=== PATIENT | female | born 1990 | race American Indian/Alaskan Native ===

== ENCOUNTER 2017-04-01 18:26 | Emergency (ER) | payer SELFPAY ==
[2017-04-01 18:38] VITALS: O2SAT 100
[2017-04-01] MEDS ORDERED: Sodium Chloride 0.9% 1,000 ML IV ONE (18:48)
[2017-04-01] MEDS ORDERED: Sodium Chloride 0.9% 1,000 ML ONE (19:22)
--- NOTE | 2017-04-01 19:47 | C.PDOC ---
History Of Present Illness 26 year old female who presents to the ER with a complaint of vomiting for the last 4 days. Patient states she has not had her menstrual period this month; she note she is P:1. Patient reports having any elective in September. Denies fever, chills, or abdominal pain. Time Seen by Provider: 04/01/17 18:39 Chief Complaint (Nursing): Abdominal Pain History Per: Patient History/Exam Limitations: no limitations Onset/Duration Of Symptoms: Days (4) Current Symptoms Are (Timing): Still Present Associated Symptoms: Vomiting. denies: Fever, Chills Exacerbating Factors: None Alleviating Factors: None Recent travel outside of the [place]: No Abnormal Vaginal Bleeding: No Past Medical History Reviewed: Historical Data, Nursing Documentation, Vital Signs Vital Signs: Last Vital Signs Temp 98.3 F 04/01/17 18:35 Pulse 68 04/01/17 18:35 Resp 19 04/01/17 18:35 BP 95/63 L 04/01/17 18:35 Pulse Ox 100 04/01/17 21:32 - Medical History PMH: Asthma Surgical History: Tonsillectomy Family History: States: Unknown Family Hx - Social History Hx Alcohol Use: Yes Hx Substance Use: No (DENIED) - Immunization History Hx Tetanus Toxoid Vaccination: No Hx Influenza Vaccination: No Hx Pneumococcal Vaccination: No Review Of Systems Constitutional: Negative for: Fever, Chills Gastrointestinal: Positive for: Vomiting. Negative for: Abdominal Pain Physical Exam - Physical Exam Appears: Non-toxic Skin: Normal Color, Warm, Dry Head: Atraumatic, Normacephalic Oral Mucosa: Moist Chest: Symmetrical, No Tenderness Cardiovascular: Rhythm Regular, No Murmur Respiratory: Normal Breath Sounds, No Rales, No Rhonchi, No Wheezing Gastrointestinal/Abdominal: Soft, No Tenderness Neurological/Psych: Oriented x3, Normal Speech, Normal Cognition ED Course And Treatment - Laboratory Results Lab Interpretation: Normal (A+, QHCG 140,750 H) Urine POC: Positive O2 Sat by Pulse Oximetry: 100 (Room air) Pulse Ox Interpretation: Normal Progress Note: 1899: Blood work and transvaginal US ordered. Pepcid, zofran, and IV fluids administered. 1999: pos preg- pt will stay for preg US and preg w /u. 2129: pt now declines to stay for preg US, prefers opt f/u. Medical Decision Making Medical Decision Making: early preg, LMP January 2017, so probably approx 8 wks preg No UTI, prefers opt f/u. Disposition Doctor Will See Patient In The: Office Counseled Patient/Family Regarding: Studies Performed, Diagnosis - Disposition Disposition: HOME/ ROUTINE Disposition Time: 21:34 Condition: GOOD - Clinical Impression Clinical Impression: Hyperemesis arising during - Scribe Statement The provider has reviewed the documentation as recorded by the Scribpepe Ro All medical record entries made by the Tomasibpepe were at my direction and personally dictated by me. I have reviewed the chart and agree that the record accurately reflects my personal performance of the history, physical exam, medical decision making, and the department course for this patient. I have also personally directed, reviewed, and agree with the discharge instructions and disposition.
[2017-04-01 20:05] LABS: HCG,QUALITATIVE URINE POSITIVE (NEGATIVE)
[2017-04-01 20:11] LABS: SQUAMOUS EPITHIAL 5 /hpf (0-5); URINE BILIRUBIN NEGATIVE (NEGATIVE); URINE BLOOD NEGATIVE (NEGATIVE); URINE CLARITY Hazy (Clear); URINE COLOR Yellow (YELLOW); URINE GLUCOSE (UA) NORMAL (Normal); URINE LEUKOCYTE ESTERASE NEG Leu/uL (Negative); URINE NITRATE NEGATIVE (NEGATIVE); URINE PROTEIN 1+ mg/dL (NEGATIVE)
[2017-04-01 20:12] LABS: BENZODIAZEPINES, UR NEGATIVE (NEGATIVE)
[2017-04-01 20:14] LABS: BARBITURATES, UR NEGATIVE (NEGATIVE)
[2017-04-01 20:16] LABS: OPIATES, UR NEGATIVE (NEGATIVE)
[2017-04-01 20:17] LABS: PHENCYCLIDINE, UR NEGATIVE (NEGATIVE)
[2017-04-01 22:09] LABS: BASO # 0.1 K/uL (0.0-0.2); BASO % 0.6 % (0.0-2.0); EOS # 0.1 K/uL (0.0-0.7); HEMOGLOBIN 12.2 g/dL (11.0-16.0); LYMPH # 2.3 K/uL (1.0-4.3); MEAN CELL VOLUME 86.5 fL (81.0-99.0); MEAN CORPUSCULAR HEMOGLOBIN 28.9 pg (27.0-31.0); MEAN CORPUSCULAR HGB CONC 33.4 g/dL (33.0-37.0); MEAN PLATELET VOLUME 7.6 fL (7.2-11.7); MONO # 0.8 K/uL (0.0-0.8); MONO % 9.7 % (0.0-10.0); NEUT # 5.2 K/uL (1.8-7.0); NEUT % 61.7 % (50.0-75.0); RBC 4.21 Mil/uL (3.80-5.20); RED CELL DISTRIBUTION WIDTH 14.2 % (11.5-14.5); WHITE BLOOD COUNT 8.4 K/uL (4.8-10.8)
[2017-04-01 22:29] VITALS: BP 95/60; PULSE 70; RESP 18; TEMP 98.2
== END 2017-04-01 22:15 | disposition home or self-care (01) ==
LOC: C.ER 18:26
DX: O21.0 Mild hyperemesis gravidarum (principal); Z3A.00 Weeks of gestation of pregnancy not specified
CPT/HCPCS: 81001; 84702; 84703; 85025; 86850; 86900; 96361; 96374; 96375; 99284; G0480; J2405; J7040